=== PATIENT | female | born 1995 | race Caucasian/White ===

== ENCOUNTER 2017-07-28 10:20 | Emergency (ER) | payer MEDICAID ==
[~2017-07-28] VITALS: Ht 167.6 cm; Wt 65.0 kg
[2017-07-28] MEDS ORDERED: SODIUM CHLORIDE 0.9% 1,000 ML IV ONE (11:23)
[2017-07-28] MEDS ORDERED: KETOROLAC 30MG/ML VIAL IV STA (11:23)
[2017-07-28] MEDS ORDERED: LIDOCAINE HCL/EPINEPHRINE 1%-EPI 1:100,000 50 ML VIAL INFIL ONE (11:30)
[2017-07-28] MEDS ORDERED: LIDOCAINE HCL/EPINEPHRINE 1%-EPI 1:100,000 20 ML VIAL INFIL ONE ×2 (11:30)
[2017-07-28] MEDS ORDERED: LIDOCAINE HCL/EPINEPHRINE 1%-EPI 1:100,000 30 ML VIAL INFIL ONE (11:30)
[2017-07-28 11:47] LABS: BASOPHILS % 0.5 % (0.0-2.0); EOSINOPHILS % 0.6 % (0.0-5.0); HEMATOCRIT. 39.4 % (36.0-48.0); HEMOGLOBIN. 13.3 g/dL (12.0-16.0); LYMPHOCYTES % 11.1 % (20.0-50.0); MEAN CORPUSCULAR HEMOGLOBIN 29.2 pg (28.0-32.0); MEAN CORPUSCULAR VOLUME 86.4 fL (81.0-99.0); MEAN PLATELET VOLUME 9.1 fl (7.4-10.4); MONOCYTES % 4.7 % (2.0-8.0); NEUTROPHILS % 83.1 % (40.0-76.0); PLATELET 346 x1000/uL (130-400); RED BLOOD CELL COUNT 4.56 mill/uL (4.2-5.4); RED CELL DISTRIBUTION WIDTH 13.8 % (11.6-14.6)
[2017-07-28 11:53] LABS: CHLORIDE 108 mEq/L (98-107)
[2017-07-28 12:03] LABS: INR 1.1; PROTHROMBIN TIME 11.2 sec (9.4-11.6)
[2017-07-28] MEDS ORDERED: TRANEXAMIC ACID 1,000 MG/10 ML IV ONE (14:30)
[2017-07-28] MEDS ORDERED: MORPHINE SULFATE 4 MG/ML CPJ (NOT FOR IM USE) IV ONE (16:00)
[2017-07-28] MEDS ORDERED: SODIUM CHLORIDE 0.9% IV NR (16:00)
[2017-07-28] MEDS ORDERED: TRANEXAMIC ACID IV NR (16:00)
[2017-07-28 16:44] VITALS: BP 97/64
[2017-07-28 16:44] LABS: CLARITY URINE CLEAR (CLEAR); COLOR URINE YELLOW (YELLOW); KETONES URINE NEGATIVE (NEGATIVE); LEUKOCYTE ESTERASE URINE TRACE (NEGATIVE); NITRITE URINE NEGATIVE (NEGATIVE); OCCULT BLOOD URINE NEGATIVE (NEGATIVE); PH URINE 6.5 (4.5-8.0); PROTEIN URINE NEGATIVE (NEGATIVE); SPECIFIC GRAVITY URINE 1.017 (1.005-1.030); UROBILINOGEN URINE 0.2 E.U./dL (0.2-1.0)
== END 2017-07-28 16:50 | disposition home or self-care (01) ==
LOC: ER 10:20
DX: R55 Syncope and collapse (principal); S02.401A Maxillary fracture, unspecified side, initial encounter for closed fracture; X58.XXXA Exposure to other specified factors, initial encounter
CPT/HCPCS: 36415; 70450; 70486; 80053; 81003; 81025; 85025; 85610; 93005; 96361; 96374; 96375; 99285; J1885; J2270; J3490; J7030; Z7610; J7050